=== PATIENT | female | born 1960 | race Caucasian/White ===

== ENCOUNTER 2023-12-28 15:00 | Outpatient (CLI) | payer MEDICAID | END 2023-12-28 23:59 | disposition home or self-care (01) | LOC: RAD 15:00 | PROVIDERS: ATTEND Family Medicine | DX: M77.31 Calcaneal spur, right foot (principal); M79.671 Pain in right foot | CPT/HCPCS: 73630 ==

== ENCOUNTER 2024-09-16 10:02 | Inpatient (IN) | payer MEDICAID ==
[2024-09-16] VITALS (10 sets, daily range): BP systolic 95–114; BP diastolic 59–72; PULSE 73–83; RESP 12–17; TEMP 97.8–98.1; O2SAT 94–97
[~2024-09-16] VITALS: Ht 160 cm; Wt 85.8 kg
[2024-09-16] MEDS: normal saline 1000ml 1,000 ML IV ONE (10:35)
[2024-09-16] MEDS: nitroGLYCERIN 0.2mg/hour patch TD ONE (10:36)
[2024-09-16 10:41] LABS: BILIRUBIN,URINE NEGATIVE (Neg); CLARITY,URINE CLEAR (Clear); COLOR,URINE YELLOW (Yellow); GLUCOSE, URINE NEGATIVE (Neg); KETONES,URINE NEGATIVE (Neg); LEUKOCYTE ESTERASE ,URINE SMALL (Neg); NITRITES, URINE NEGATIVE (Neg); OCCULT BLOOD,URINE NEGATIVE (Neg); PROTEIN,URINE NEGATIVE (Neg); UROBILINOGEN,URINE 0.2 E.U/dL (0.2-1.0)
[2024-09-16 10:44] LABS: UA COLLECTION TYPE CLN CATCH MIDSTREAM
[2024-09-16 10:48] LABS: BASOPHILS # (AUTO) 0.1 X10'3 (0-0.2); BASOPHILS % (AUTO) 0.7 % (0-1); EOSINOPHILS # (AUTO) 0.3 X10'3 (0-0.9); EOSINOPHILS % (AUTO) 2.8 % (0-6); HEMATOCRIT 46.9 % (35.0-45.0); HEMOGLOBIN 16.4 g/dl (12.0-16.0); LYMPHOCYTES # (AUTO) 2.8 X10'3 (1.1-4.8); LYMPHOCYTES % (AUTO) 28.4 % (21-51); MEAN CORPUSCULAR VOLUME 88.6 FL (78-98); MEAN PLATELET VOLUME 6.9 FL (7.4-10.4); MONOCYTES # (AUTO) 0.5 X10'3 (0-0.9); MONOCYTES % (AUTO) 4.7 % (2-12); NEUTROPHILS # (AUTO) 6.3 X10'3 (1.8-7.7); NEUTROPHILS % (AUTO) 63.4 % (42-75); PLATELET COUNT 285 X10'3 (140-440); RED BLOOD COUNT 5.29 X10'6 (4.20-5.60); RED CELL DISTRIBUTION WIDTH 13.3 % (11.5-14.5); WHITE BLOOD COUNT 9.9 X10'3 (4.5-11.0)
[2024-09-16 10:56] LABS: PROTHROMBIN TIME 10.2 SECONDS (9.0-12.0)
[2024-09-16 10:57] LABS: ALANINE AMINOTRANSFERASE 22 U/L (12-78); ALBUMIN 4.1 G/DL (3.4-5.0); ALBUMIN/GLOBULIN RATIO 1.1 (1.1-1.5); ALKALINE PHOSPHATASE 87 IU/L (46-116); ANION GAP 8 (8-16); ASPARTATE AMINO TRANSFERASE 16 U/L (10-37); BILIRUBIN,TOTAL 0.8 MG/DL (0.1-1.0); BLOOD UREA NITROGEN 13 MG/DL (7-18); BUN/CREATININE RATIO 13.5 (10.0-20.0); CALCIUM 9.2 MG/DL (8.5-10.1); CHLORIDE 106 MMOL/L (99-107); CREATININE 0.96 MG/DL (0.40-0.90); GLUCOSE 128 MG/DL (70-104); SODIUM 143 MMOL/L (135-145); TOTAL CARBON DIOXIDE 28.8 MMOL/L (24-32); TOTAL PROTEIN 7.8 G/DL (6.4-8.2); eCRCL 50 ML/MIN; eGFR 59 ML/MIN
[2024-09-16 11:01] LABS: ETHANOL < 10 MG/DL (<10)
[2024-09-16 11:05] LABS: APTT 24 SECONDS (22-32)
[2024-09-16] MEDS ORDERED: heparin 10,000 units/1 ML INJ IV ONE (11:15)
[2024-09-16 11:21] LABS: BACTERIA,URINE 2+ /HPF (Neg); MUCUS STRANDS MODERATE /LPF (Neg); SQUAMOUS EPITHELIAL CELL,UR MODERATE /LPF (FEW); TRANSITIONAL EPI CELLS,URINE MODERATE /HPF
[2024-09-16 11:26] LABS: RBC,URINE 0-2 /HPF (0-2)
[2024-09-16] MEDS: MESSAGE TO NURSING IV ONE (11:40)
[2024-09-16] MEDS: heparin 10,000 units/1 ML INJ IV ONE (11:47)
[2024-09-16] MEDS: heparin 25,000 UNIT/250ml bag 250 ML IV PRN (11:57)
[2024-09-16] MEDS ORDERED: acetaminophen 650mg rectal suppository RC PRN (12:05)
[2024-09-16] MEDS: normal saline 1000ml 1,000 ML IV SCH (12:05)
[2024-09-16] MEDS ORDERED: diphenhydrAMINE 50 mg/ml inj IV PRN (12:05)
[2024-09-16] MEDS ORDERED: ondansetron/PF 4mg/2ml inj IV PRN (12:05)
[2024-09-16] MEDS ORDERED: metoclopramide 5 mg/ml inj IV PRN (12:05)
[2024-09-16] MEDS ORDERED: diphenhydrAMINE 25mg capsule PO PRN (12:05)
[2024-09-16] MEDS ORDERED: morphine 2 MG/ML inj. syringe IV PRN ×2 (12:05)
[2024-09-16] MEDS ORDERED: ondansetron 4mg rapidly disintigrating tab PO PRN (12:05)
[2024-09-16] MEDS ORDERED: acetaminophen 325mg tablet PO PRN (12:05)
[2024-09-16] MEDS ORDERED: mag hydrox/Alum hydrox/simeth 30ml oral suspension PO PRN (12:05)
[2024-09-16] MEDS ORDERED: bisacodyl 10mg suppository rectal RC PRN (12:05)
[2024-09-16] MEDS ORDERED: magnesium hydroxide 30ml (MOM) UD suspension PO PRN (12:05)
[2024-09-16 13:11] LABS: D-DIMER 0.29 MG/L FEU (0-0.50)
[2024-09-16 13:18] LABS: HEMOGLOBIN A1C 5.5 % (4.5-6.2)
[2024-09-16 13:25] LABS: PHOSPHORUS 3.3 MG/DL (2.3-4.5); THYROID STIMULATING HORMONE 1.96 ulU/ml (0.34-4.50)
[2024-09-16] MEDS: CefTRIAXone 2gm/D5W 50ml BAG 50 ML IV ONE (14:01)
[2024-09-16] MEDS: docusate sod 100mg capsule PO SCH (14:08)
[2024-09-16] MEDS ORDERED: GABA300C PO (14:13)
[2024-09-16] MEDS ORDERED: MELO-102 PO (14:13)
[2024-09-16] MEDS ORDERED: BUPR-561 PO (14:13)
[2024-09-16] MEDS ORDERED: SEMA0.5P SUBCUT (14:13)
[2024-09-16] MEDS ORDERED: LIDOcaine 1% 30ml preserv. free vial ONE (16:55)
[2024-09-16] MEDS ORDERED: verapamil 2.5 mg/ml inj IV ONE (16:55)
[2024-09-16] MEDS ORDERED: nitroGLYCERIN 500mcg/5mL D5W 5 ML IV ONE (16:55)
[2024-09-16] MEDS ORDERED: iohexol 350MG/ML 100ml bottle IV ONE (16:55)
[2024-09-16] MEDS ORDERED: heparin 1,000unit/ml 10ml vial 10 ML ONE (16:55)
[2024-09-16] MEDS ORDERED: midazolam 1 mg/ML 2ml injection ONE (17:27)
[2024-09-16] MEDS ORDERED: fentaNYL/PF 50MCG/1 ML 2ML syringe ONE (17:27)
[2024-09-16 18:39] LABS: CHOL/HDL RATIO 3.2 (0.00-4.99); CHOLESTEROL 161 MG/DL (0-200); HDL CHOLESTEROL 50 MG/DL (35-60); LDL CHOLESTEROL 98 MG/DL (50-100); TRIGLYCERIDES 88 MG/DL (20-135)
[2024-09-16] MEDS: metoprolol tartrate 25mg tablet PO SCH (20:30)
[2024-09-16] MEDS: acetaminophen 325mg tablet PO PRN (20:31)
[2024-09-17] VITALS (9 sets, daily range): BP systolic 101–148; BP diastolic 51–75; PULSE 72–81; RESP 10–19; TEMP 96.9–98.7; O2SAT 95–97
[2024-09-17] MEDS: temazepam 15mg capsule PO PRN (01:25)
[2024-09-17] MEDS: HYDROcodone/acetaminophen 5mg/325mg tablet PO PRN (04:26)
[2024-09-17 07:31] LABS: BASOPHILS % (AUTO) 0.5 % (0-1); EOSINOPHILS # (AUTO) 0.2 X10'3 (0-0.9); EOSINOPHILS % (AUTO) 2.4 % (0-6); HEMATOCRIT 41.8 % (35.0-45.0); HEMOGLOBIN 14.4 g/dl (12.0-16.0); LYMPHOCYTES # (AUTO) 3.6 X10'3 (1.1-4.8); LYMPHOCYTES % (AUTO) 38.1 % (21-51); MEAN CORPUSCULAR HEMOGLOBIN 30.9 PG (27.0-31.0); MEAN CORPUSCULAR HGB CONC 34.4 g/dL (33.0-36.5); MEAN CORPUSCULAR VOLUME 89.8 FL (78-98); MEAN PLATELET VOLUME 7.4 FL (7.4-10.4); MONOCYTES # (AUTO) 0.6 X10'3 (0-0.9); NEUTROPHILS # (AUTO) 5.1 X10'3 (1.8-7.7); PLATELET COUNT 247 X10'3 (140-440); RED BLOOD COUNT 4.65 X10'6 (4.20-5.60); RED CELL DISTRIBUTION WIDTH 13.6 % (11.5-14.5); WHITE BLOOD COUNT 9.5 X10'3 (4.5-11.0)
[2024-09-17 07:51] LABS: ALANINE AMINOTRANSFERASE 14 U/L (12-78); ALBUMIN 3.2 G/DL (3.4-5.0); ALBUMIN/GLOBULIN RATIO 1.1 (1.1-1.5); ALKALINE PHOSPHATASE 69 IU/L (46-116); ANION GAP 10 (8-16); ASPARTATE AMINO TRANSFERASE 32 U/L (10-37); BILIRUBIN,TOTAL 0.6 MG/DL (0.1-1.0); BLOOD UREA NITROGEN 11 MG/DL (7-18); BUN/CREATININE RATIO 14.3 (10.0-20.0); CALCIUM 8.5 MG/DL (8.5-10.1); CHLORIDE 106 MMOL/L (99-107); CHOL/HDL RATIO 3.2 (0.00-4.99); CHOLESTEROL 143 MG/DL (0-200); CREATININE 0.77 MG/DL (0.40-0.90); GLUCOSE 122 MG/DL (70-104); HDL CHOLESTEROL 45 MG/DL (35-60); LDL CHOLESTEROL 85 MG/DL (50-100); POTASSIUM 3.9 MMOL/L (3.5-5.1); SODIUM 140 MMOL/L (135-145); TOTAL CARBON DIOXIDE 23.7 MMOL/L (24-32); TOTAL PROTEIN 6.1 G/DL (6.4-8.2); TRIGLYCERIDES 120 MG/DL (20-135); eCRCL 63 ML/MIN; eGFR 76 ML/MIN
[2024-09-17] MEDS: CefTRIAXone/D5W-Rocephin 1gm 50 ML IV SCH (08:00)
[2024-09-17] MEDS ORDERED: metoprolol succinate 25mg (24-HOUR) SR. Tablet PO SCH (08:00)
[2024-09-17] MEDS: MESSAGE TO NURSING IV ONE ×2 (08:29→15:30)
[2024-09-17] MEDS: heparin 10,000 units/1 ML INJ IV PRN (08:30)
[2024-09-17] MEDS: atorvastatin 20mg tablet PO SCH (08:37)
[2024-09-17] MEDS: pantoprazole 40mg Tablet.DR PO SCH (08:38)
[2024-09-17] MEDS: aspirin 81mg, enteric-coated 1 TAB TABLET.DR PO SCH (08:38)
[2024-09-17] MEDS: HYDROcodone/acetaminophen 10/325mg tab PO PRN (08:39)
[2024-09-18] VITALS (7 sets, daily range): BP systolic 97–122; BP diastolic 45–72; PULSE 70–77; RESP 13–22; TEMP 96.9–97.6; O2SAT 95–99
[2024-09-18 07:29] LABS: BASOPHILS % (AUTO) 0.3 % (0-1); EOSINOPHILS # (AUTO) 0.2 X10'3 (0-0.9); EOSINOPHILS % (AUTO) 2.3 % (0-6); HEMATOCRIT 41.2 % (35.0-45.0); HEMOGLOBIN 14.5 g/dl (12.0-16.0); LYMPHOCYTES # (AUTO) 3.7 X10'3 (1.1-4.8); LYMPHOCYTES % (AUTO) 42.9 % (21-51); MEAN CORPUSCULAR HEMOGLOBIN 31.1 PG (27.0-31.0); MEAN CORPUSCULAR HGB CONC 35.2 g/dL (33.0-36.5); MEAN CORPUSCULAR VOLUME 88.5 FL (78-98); MEAN PLATELET VOLUME 7.3 FL (7.4-10.4); MONOCYTES # (AUTO) 0.6 X10'3 (0-0.9); NEUTROPHILS # (AUTO) 4.1 X10'3 (1.8-7.7); NEUTROPHILS % (AUTO) 47.5 % (42-75); PLATELET COUNT 206 X10'3 (140-440); RED BLOOD COUNT 4.65 X10'6 (4.20-5.60); RED CELL DISTRIBUTION WIDTH 13.2 % (11.5-14.5); WHITE BLOOD COUNT 8.7 X10'3 (4.5-11.0)
[2024-09-18 07:39] LABS: ALANINE AMINOTRANSFERASE 17 U/L (12-78); ALBUMIN 3.2 G/DL (3.4-5.0); ALKALINE PHOSPHATASE 69 IU/L (46-116); ANION GAP 8 (8-16); ASPARTATE AMINO TRANSFERASE 33 U/L (10-37); BILIRUBIN,TOTAL 0.9 MG/DL (0.1-1.0); BLOOD UREA NITROGEN 9 MG/DL (7-18); CALCIUM 8.4 MG/DL (8.5-10.1); CHLORIDE 106 MMOL/L (99-107); CREATININE 0.75 MG/DL (0.40-0.90); GLUCOSE 109 MG/DL (70-104); POTASSIUM 3.9 MMOL/L (3.5-5.1); SODIUM 140 MMOL/L (135-145); TOTAL CARBON DIOXIDE 25.7 MMOL/L (24-32); TOTAL PROTEIN 6.3 G/DL (6.4-8.2); eCRCL 64 ML/MIN; eGFR 78 ML/MIN
[2024-09-18] MEDS: metoprolol succinate 25mg (24-HOUR) SR. Tablet PO SCH (07:42)
[2024-09-18] MEDS: DAPAGLIFLOZIN 10MG TABLET PO SCH (07:42)
[2024-09-18] MEDS: lisinopril 5mg tablet PO SCH (07:43)
[2024-09-18] MEDS: clopidogrel 75mg tablet PO SCH (14:53)
[2024-09-18] MEDS ORDERED: ATOR40TA PO (15:11)
[2024-09-18] MEDS ORDERED: ASPI-1071 PO (15:11)
[2024-09-18] MEDS ORDERED: LISI5TAB22 PO (15:11)
[2024-09-18] MEDS ORDERED: METO-395 PO (15:11)
[2024-09-18] MEDS ORDERED: DAPA10TA PO (15:11)
[2024-09-18] MEDS ORDERED: CLOP75TA34 PO (15:11)
== END 2024-09-18 17:49 | disposition home or self-care (01) | DRG 190 ==
LOC: ER 10:02 → ED HOLD 12:07 → PCU 3S 14:57
PROVIDERS: ADMIT Family Medicine; ATTEND Family Medicine
PROC: 4A023N7 Measurement of Cardiac Sampling and Pressure, Left Heart, Percutaneous Approach (ICD-10-PCS; principal; 2024-09-16)
PROC: B2111ZZ Fluoroscopy of Multiple Coronary Arteries using Low Osmolar Contrast (ICD-10-PCS; 2024-09-16)
DX: I21.4 Non-ST elevation (NSTEMI) myocardial infarction (principal); I50.21 Acute systolic (congestive) heart failure; N17.9 Acute kidney failure, unspecified; F32.A Depression, unspecified; E86.0 Dehydration; E86.1 Hypovolemia; N30.00 Acute cystitis without hematuria; Z90.710 Acquired absence of both cervix and uterus; Z79.899 Other long term (current) drug therapy
CPT/HCPCS: 36415; 71045; 80053; 80061; 80320; 81001; 83036; 83605; 83690; 83735; 83880; 84100; 84443; 84484; 85025; 85379; 85610; 85651; 85730; 87040; 87081; 87088; 93005; 93306; 93458; 99152; 99153; 99291; A6212; C1894; G0378; J0696; J1644; J2003; J2250; J3010; J3490; J7030; Q9967